=== PATIENT | female | born 1985 | race African-American/Black ===

== ENCOUNTER 2019-09-30 21:03 | Emergency (ER) | payer OTHER ==
[2019-09-30 21:35] VITALS: BMI 27.4
[2019-09-30] MEDS ORDERED: ONDANSETRON 4 MG/2 ML VIAL IVPB ONE (21:48)
[2019-09-30] MEDS ORDERED: KETOROLAC TROMETHAMINE 30 MG/1 ML VIAL IVPUSH ONE (21:48)
[2019-09-30] MEDS ORDERED: SODIUM CHLORIDE 1,000 ML IV ONE (21:48)
[2019-09-30] MEDS ORDERED: KETOROLAC TROMETHAMINE 30 MG/1 ML VIAL ONE (21:50)
[2019-09-30] MEDS ORDERED: ONDANSETRON 4 MG/2 ML VIAL ONE (21:50)
[2019-09-30 21:54] LABS: BASO % 1.2 % (0-2.0); EOS % 3.4 % (0-4.5); HEMATOCRIT 35.7 % (32.4-45.2); HEMOGLOBIN 11.6 GM/dl (10.7-15.3); LYMPH % 50.9 % (8-40); MCH 24.6 pg (25.7-33.7); MCHC 32.6 g/dl (32.0-36.0); MEAN CELL VOLUME 75.6 fl (80-96); MEAN PLT VOLUME 8.9 fl (7.5-11.1); MONO % 14.7 % (3.8-10.2); NEUT % 29.8 % (42.8-82.8); PLATELET COUNT 231 K/MM3 (134-434); RBC 4.73 M/mm3 (3.60-5.2); RDW 14.1 % (11.6-15.6); WHITE BLOOD COUNT 5.5 K/mm3 (4.0-10.8)
[2019-09-30 22:03] LABS: ALBUMIN 3.5 g/dl (3.4-5.0); BILIRUBIN,TOTAL 0.5 mg/dl (0.2-1); CALCIUM 8.4 mg/dl (8.5-10); CREATININE 0.6 mg/dl (0.55-1.3); TOT PROT 6.5 g/dl (6.4-8.2)
[2019-09-30] MEDS ORDERED: morphine CARPU-JECT 2 MG/1 ML DISP.SYRIN IVPUSH ONE (22:20)
--- NOTE | 2019-09-30 22:21 | PDOC ---
Documentation entered by Sara Chou SCRIBE, acting as scribe for Mahad Hidalgo MD. Mahad Hidalgo MD: This documentation has been prepared by the Effie valero Nirvannie, SCRIBE, under my direction and personally reviewed by me in its entirety. I confirm that the documentation accurately reflects all work, treatment, procedures, and medical decision making performed by me. History of Present Illness - General Chief Complaint: Pain, Acute Stated Complaint: RIGHT FLANK PAIN Time Seen by Provider: 09/30/19 21:08 History Source: Patient Exam Limitations: No Limitations - History of Present Illness Initial Comments: 09/30/19 21:54 HPI: The patient is a 34 year old female, with a significant past medical history of MS and renal lithiasis (5 years ago), who presents to the emergency department with 3 hours of sudden onset right lower quadrant pain with radiation to the right flank. Patient describes her pain as a sharp, spasmodic pain. She notes her pain is reproduced upon urination and similar to her previous kidney stone. She denies recent fevers, chills, headache or dizziness. She denies recent nausea, vomit, diarrhea or constipation. She denies recent dysuria, frequency, urgency or hematuria. She denies recent chest pain or shortness of breath. PAST MEDICAL HISTORY: MS and renal lithiasis (5 years ago) PAST SURGICAL HISTORY: no significant history FAMILY HISTORY: no pertinent history SOCIAL HISTORY: Pt lives with family and is employed. MEDICATIONS: reviewed ALLERGIES: As per nursing notes ROS: General: No fevers or chills, no weakness, no weight loss HEENT: No change in vision. No sore throat,. No ear pain CardioVascular: No chest pain or shortness of breath Respiratory:No cough, or wheezing. Gastrointestinal: +Right lower quadrant pain. No nausea, vomiting, diarrhea or constipation, No rectal bleeding Genitourinary: +Right flank pain. No dysuria, hematuria, or frequency Musculoskeletal: No joint or muscle pain or swelling Neurologic: No headache, vertigo, dizziness or loss of consciousness Psychiatric: nor depression Skin: No rashes or easy bruising Endocrine: no increased thirst or abnormal weight change Allergic: no skin or latex allergy All other systems reviewed and normal Physical Exam: GENERAL: The patient is awake, alert, and fully oriented, in no acute distress. HEAD: Normal with no signs of trauma. EYES: Pupils equal, round and reactive to light, extraocular movements intact, sclera anicteric, conjunctiva clear. ABDOMEN: +Right flank and right lower quadrant tenderness. Soft, nondistended, normal bowel sounds. EXTREMITIES: Normal range of motion, no edema. NEUROLOGICAL: Normal speech, normal gait. PSYCH: Normal mood, normal affect. SKIN: Warm, Dry, normal turgor, no rashes or lesions noted. 09/30/19 22:20 Assessment and plan: This is a 34-year-old female with history of renal colic in the past who comes in complaining of right flank pain radiating to her right lower quadrant. Patient said symptoms are similar to when she has had kidney stones in the past. Patient otherwise has a history of multiple sclerosis and is on a number of medications. Patient work-up was initiated including CAT scan , urine, CBC, comp, patient was given IV fluids, and pain medications. 10/01/19 00:44 Patient's CAT scan showed bibasilar pneumonia. And constipation. Patient does have underlying MS however she is not hypoxic, tachypneic and she has a normal white count with no left shift. So patient will be given IV ceftriaxone and azithromycin and discharged on azithromycin. Patient told to call her primary care doctor in the morning and have close follow-up. 10/01/19 06:37 Past History - Past Medical History Allergies/Adverse Reactions: Allergies Allergy/AdvReac Type Severity Reaction Status Date / Time Sulfa (Sulfonamide Allergy Severe Swelling Verified 09/30/19 21:07 Antibiotics) amoxicillin Allergy Unknown Verified 09/30/19 21:06 Home Medications: Ambulatory Orders Dextroamphetamine/Amphetamine [Adderall 10 mg Tablet] 10 mg PO DAILY 09/30/19 Dupilumab [Dupixent] 200 mg SQ 09/30/19 Gabapentin 300 mg PO DAILY 09/30/19 Glatiramer Acetate [Copaxone] 40 mg SQ 09/30/19 Pantoprazole Sodium 40 mg PO DAILY 09/30/19 Azithromycin [Zithromax 250mg Tablets -] 250 mg PO DAILY #4 tab 10/01/19 COPD: No Other medical history: MS - Psycho Social/Smoking Cessation Hx Smoking History: Never smoked Have you smoked in the past 12 months: No Information on smoking cessation initiated: No Hx Alcohol Use: No Drug/Substance Use Hx: No *Physical Exam - Vital Signs Last Vital Signs Temp Pulse Resp BP Pulse Ox 98.1 F 100 H 16 115/75 97 09/30/19 21:28 09/30/19 21:28 09/30/19 21:28 09/30/19 21:28 09/30/19 21:28 ED Treatment Course - LABORATORY CBC & Chemistry Diagram: 09/30/19 21:40 09/30/19 21:40 - ADDITIONAL ORDERS Additional order review: Laboratory Results 09/30/19 21:05 Urine Color Yellow Urine Appearance Clear Urine pH 5.5 Urine Protein Negative Urine Glucose (UA) Negative Urine Ketones Trace Urine Blood Negative Urine Nitrite Negative Urine Bilirubin Negative Urine Urobilinogen 0.2 Ur Leukocyte Esterase Negative - RADIOLOGY Radiology Studies Ordered: Category Date Time Status SPIRAL- RENAL-STONE CT [CT] Stat CT Scan 09/30/19 21:47 Ordered - Medications Given in the ED: ED Medications Discontinued Medications Generic Name Dose Route Start Last Admin Trade Name Alex PRN Reason Stop Dose Admin Ketorolac Tromethamine 30 mg 09/30/19 21:48 09/30/19 21:55 Toradol Injection - IVPUSH 09/30/19 21:49 30 mg ONCE ONE Administration Ondansetron HCl 4 mg 09/30/19 21:48 09/30/19 21:55 Zofran Injection IVPB 09/30/19 21:49 4 mg ONCE ONE Administration Discharge - Discharge Information Problems reviewed: Yes Clinical Impression/Diagnosis: Constipation Pneumonia Qualifiers: Pneumonia type: due to unspecified organism Laterality: bilateral Condition: Good Disposition: HOME - Admission No - Additional Discharge Information Prescriptions: Azithromycin [Zithromax 250mg Tablets -] 250 mg PO DAILY #4 tab - Follow up/Referral - Patient Discharge Instructions Additional Instructions: Tylenol or Motrin as needed for pain take azithromycin as directed on the Z-Pietro. Tylenol or Motrin as needed for pain Call your primary care doctor in the morning and get an appointment to follow- up in 1 to 2 days for reevaluation For the constipation and drink the mag citrate and get a [id number] laxative like MiraLAX if you do not have a bowel movement. Return to the emergency department immediately with ANY new, persistent or worsening symptoms. Continue any medications as previously prescribed by your physician. You should follow up with your primary doctor as soon as possible regarding today's emergency department visit. . Please make sure your doctor reviews the results of your emergency evaluation. Thank you for coming to the Emergency Department today for your care. It was a pleasure to see you today. Please note that your evaluation is INCOMPLETE until you follow-up with your doctor. - Post Discharge Activity
[2019-09-30] MEDS ORDERED: morphine SULFATE 4 MG/ML VIAL ONE (22:23)
[2019-10-01] MEDS ORDERED: CEFTRIAXONE 1,000 MG in DEXTROSE 5%-WATER - 50 ML IVPB ONE (00:43)
[2019-10-01] MEDS ORDERED: cefTRIAXone SODIUM 1 GM VIAL ONE (00:44)
[2019-10-01] MEDS ORDERED: AZITHROMYCIN 500 MG VIAL IVPB ONE (00:44)
[2019-10-01] MEDS ORDERED: AZITHROMYCIN IVPB 500 MG in DEXTROSE 5%-WATER - 250 ML IVPB ONE (00:44)
[2019-10-01] MEDS ORDERED: MAGNESIUM CITRATE 300 ML BOTTLE PO ONE (00:47)
[2019-10-01] MEDS ORDERED: MAGNESIUM CITRATE 300 ML BOTTLE ONE (01:26)
[2019-10-01] MEDS ORDERED: ONDANSETRON 4 MG/2 ML VIAL ONE (02:06)
[2019-10-01 02:29] VITALS: BP 112/77; PULSE 90; TEMP 97.6
== END 2019-10-01 02:34 | disposition home or self-care (01) ==
LOC: FER 21:03
PROC: 3E03329 Introduction of Other Anti-infective into Peripheral Vein, Percutaneous Approach (ICD-10-PCS; principal; 2019-09-30)
PROC: 3E033NZ Introduction of Analgesics, Hypnotics, Sedatives into Peripheral Vein, Percutaneous Approach (ICD-10-PCS; 2019-09-30)
PROC: 3E033GC Introduction of Other Therapeutic Substance into Peripheral Vein, Percutaneous Approach (ICD-10-PCS; 2019-09-30)
DX: K59.00 Constipation, unspecified (principal); Z88.2 Allergy status to sulfonamides; Z88.8 Allergy status to other drugs, medicaments and biological substances
CPT/HCPCS: 36415; 74176-TC; 80053; 81003; 83690; 84703; 85025; 99282-25; J7030

== ENCOUNTER 2022-10-11 19:18 | Emergency (ER) | payer OTHER ==
[2022-10-11 20:05] VITALS: BP 138/85; PULSE 94; RESP 16; TEMP 99.2; BMI 30.1
[2022-10-11 20:15] LABS: HEMATOCRIT 36.3 % (32.4-45.2); HEMOGLOBIN 12.3 G/dL (10.7-15.3); MCH 26.8 pg (25.7-33.7); MEAN CELL VOLUME 78.9 fl (80-96); MEAN PLT VOLUME 8.6 fl (7.5-11.1); PLATELET COUNT 317.3 10^3/uL (134-434); RDW 16.6 % (11.6-15.6); WHITE BLOOD COUNT 8.4 10^3/uL (4.0-10.8)
[2022-10-11 20:21] LABS: ALBUMIN 3.7 g/dl (3.4-5.0); ALK PHOS 73 U/L (45-117); ANION GAP 8 MMOL/L (8-16); BILIRUBIN,TOTAL 0.5 mg/dl (0.2-1); CALCIUM 8.4 mg/dl (8.5-10); CHLORIDE 107 mmol/L (98-107); CO2 27 mmol/L (21-32); CREATININE 0.7 mg/dl (0.55-1.3); GLUCOSE,RANDOM 94 mg/dl (74-106); SGOT/AST 17 U/L (15-37); SGPT/ALT 11 U/L (13-61); SODIUM 142 mmol/L (136-145); TOT PROT 6.4 g/dl (6.4-8.2)
[2022-10-11 21:26] LABS: ANISOCYTOSIS 1+
[2022-10-11 21:27] LABS: PLATELET ESTIMATE ADEQUATE
== END 2022-10-11 21:16 | disposition home or self-care (01) ==
LOC: FER 19:18
DX: R07.89 Other chest pain (principal)
CPT/HCPCS: 36415; 80053; 84443; 84484; 85027; 93005; 93010; 99283-25

== ENCOUNTER 2023-12-19 11:18 | Emergency (ER) | payer OTHER ==
[2023-12-19 11:37] VITALS: BP 114/78; PULSE 95; RESP 18; TEMP 98.4; BMI 29.7
[2023-12-19] MEDS ORDERED: ACETAMINOPHEN INJECTION 100 ML IVPB ONE (11:47)
[2023-12-19] MEDS ORDERED: ONDANSETRON 4 MG/2 ML VIAL ONE (11:47)
[2023-12-19] MEDS ORDERED: FAMOTIDINE 20 MG/50 ML IVPB 20 MG/50 ML MG IVPB ONE (11:47)
[2023-12-19] MEDS: SODIUM CHLORIDE 0.9% 1000 ML INFUS.BAG IV ONE (12:04)
[2023-12-19] MEDS: ACETAMINOPHEN 1000 MG/100 ML BAG IVPB ONE (12:05)
[2023-12-19] MEDS: ONDANSETRON 4 MG/2 ML VIAL IVPUSH ONE (12:08)
[2023-12-19] MEDS: FAMOTIDINE 20 MG/50 ML IVPB 20 MG/50 ML MG IVPB ONE (12:08)
[2023-12-19 12:24] LABS: HEMATOCRIT 33.7 % (32.4-45.2); HEMOGLOBIN 10.4 G/dL (10.7-15.3); MCH 22.1 pg (25.7-33.7); MEAN CELL VOLUME 71.4 fl (80-96); MEAN PLT VOLUME 9.3 fl (7.5-11.1); PLATELET COUNT 369.1 10^3/uL (134-434); RBC 4.72 10^6/uL (3.60-5.2); RDW 18.1 % (11.6-15.6); WHITE BLOOD COUNT 4.3 10^3/uL (4.0-10.8)
[2023-12-19 12:32] LABS: MAGNESIUM 1.9 mg/dL (1.8-2.4)
[2023-12-19 12:58] LABS: PLATELET ESTIMATE ADEQUATE
[2023-12-19 14:04] LABS: ALBUMIN 4.1 g/dl (3.4-5.0); BILIRUBIN,TOTAL 0.4 mg/dl (0.2-1); CALCIUM 9.4 mg/dl (8.5-10.1); CREATININE 0.8 mg/dl (0.6-1.3); POTASSIUM 3.4 mmol/L (3.5-5.1); TOT PROT 6.3 g/dl (6.4-8.2)
== END 2023-12-19 15:44 | disposition home or self-care (01) ==
LOC: FER 11:18
PROC: 3E033GC Introduction of Other Therapeutic Substance into Peripheral Vein, Percutaneous Approach (ICD-10-PCS; principal; 2023-12-19)
PROC: 3E033GC Introduction of Other Therapeutic Substance into Peripheral Vein, Percutaneous Approach (ICD-10-PCS; 2023-12-19)
PROC: 3E033NZ Introduction of Analgesics, Hypnotics, Sedatives into Peripheral Vein, Percutaneous Approach (ICD-10-PCS; 2023-12-19)
DX: R10.84 Generalized abdominal pain (principal); R11.2 Nausea with vomiting, unspecified; R19.7 Diarrhea, unspecified
CPT/HCPCS: 36415; 74177-TC; 80053; 83690; 83735; 85027; 99285-25; J0131; Q9967